=== PATIENT | female | born 2000 | race Caucasian/White ===

== ENCOUNTER 2024-10-05 11:56 | Emergency (ER) | payer OTHER | END 2024-10-05 12:31 | disposition home or self-care (01) | LOC: BURERS 11:56 | DX: J11.1 Influenza due to unidentified influenza virus with other respiratory manifestations (principal); J01.80 Other acute sinusitis; B96.89 Other specified bacterial agents as the cause of diseases classified elsewhere | CPT/HCPCS: 99283 ==